=== PATIENT | female | born 1965 | race Two or more races ===

== ENCOUNTER 2016-08-15 11:21 | Emergency (ER) | payer OTHER ==
[2016-08-15 11:37] VITALS: PULSE 60; TEMP 98.1; BMI 31.6
[2016-08-15 12:09] LABS: BASOPHIL 2.5 % (0-2.0); EOSINOPHIL 3.6 % (0-4.5); MCH 30.3 pg (25.7-33.7); MCHC 34.5 g/dl (32.0-36.0); MEAN PLT VOLUME 8.4 fl (7.5-11.1); NEUTROPHILS 57.2 % (42.8-82.8); PLATELET COUNT 272 K/MM3 (134-434); RDW 12.4 % (11.6-15.6); WHITE BLOOD COUNT 4.8 K/mm3 (4.0-10.8)
[2016-08-15 12:32] LABS: CPK(DFH) 148 IU/L (26-140)
[2016-08-15 12:33] LABS: ALBUMIN 4.3 g/dl (3.5-5.0); ALK PHOS 70 U/L (32-92); ANION GAP 9 (8-16); BILIRUBIN,TOTAL 0.8 mg/dl (0.2-1.0); CALCIUM 9.6 mg/dl (8.4-10.2); CO2 25 mmol/L (22-28); CREATININE 0.9 mg/dl (0.6-1.3); GLUCOSE,RANDOM 127 mg/dl (74-106); SGOT/AST 37 U/L (10-42); SGPT/ALT 44 U/L (10-40); TOT PROT 7.4 g/dl (6.4-8.3)
--- NOTE | 2016-08-15 12:40 | PDOC ---
History of Present Illness - General Chief Complaint: Palpitations Stated Complaint: PALPITATONS HEADACHE Time Seen by Provider: 08/15/16 11:23 - History of Present Illness Initial Comments: 08/15/16 12:34 Chief complaint: Palpitations History of present illness: Patient complains of her heart pounding while she was lying in bed last night. This persisted until she fell asleep, she is uncertain of the time interval. She noticed her blood pressure was in the 140/ 90 range, which is high for her. Her symptoms have not recurred today, but she states she just wanted to be "checked out". She is asymptomatic at present other than feeling stress and anxiety. Review of systems: Denies chest pain, shortness of breath, abdominal pain, nausea, vomiting, diaphoresis, diarrhea, visual or focal neurologic symptoms, unsteadiness of gait, lightheadedness or dizziness, vertigo, headache, URI symptoms, sore throat, cough, urinary tract symptoms, vaginal bleeding or discharge. Past medical history: Mild high blood pressure managed on medication. Non- insulin-dependent diabetes. Perimenopausal. Patient had a recent cardiac stress test in June 2016 which was entirely negative. Medications: Lisinopril, propranolol, metformin, and Evista Social history: The patient admits to extreme stress and anxiety lately due to the foreclosure of her house. She feels her symptoms may be related. No tobacco alcohol or nonprescription drugs Family history: Reviewed and noncontributory including early coronary artery disease, metabolic disease including diabetes, and cancer Physical exam: Alert oriented 3, well-developed well-nourished, no acute distress, asymptomatic at present. However, she appears slightly anxious and became tearful when describing her house foreclosure PERRLA, fundi benign, ENT clear Neck supple without bruit mass or nodes Chest clear CV regular without murmur rub or gallop Abdomen benign Extremities no CCE Neurological C2 to 12 intact. Strength full and symmetric. No focal sensory or motor deficits. Gait stable and unimpaired Skin clear, no rash, adequate turgor and wet mucous membranes Impression: Brief episode of palpitations last night while lying in bed, probably the result of stress/anxiety. Recent stress test was entirely normal. Results were reviewed. The patient performance was without limitation. Plan: EKG and enzymes, CBC and chemistries, discussed social issues and observe Past History - Past Medical History Allergies/Adverse Reactions: Allergies Allergy/AdvReac Type Severity Reaction Status Date / Time No Known Drug Allergies Allergy Verified 08/15/16 11:37 Home Medications: Ambulatory Orders Propranolol HCl [Inderal LA -] 120 mg PO DAILY 12/18/12 Remifemin 20 mg PO DAILY 02/15/14 Lisinopril/Hydrochlorothiazide [Lisinopril-Hctz 10-12.5 mg Tab] 10 each PO DAILY 12/20/14 Metformin HCl 500 mg PO DAILY 08/15/16 Anemia: No Asthma: No Cancer: No Cardiac Disorders: Yes ("HEART MURMUR" PALPITATION) CVA: No COPD: No CHF: No Dementia: No Diabetes: Yes (CONTROLLED WITH DIET) GI Disorders: No Disorders: Yes (Uterine Fibroids) HTN: Yes Hypercholesterolemia: No Liver Disease: No Psychiatric Problems: No Suicide Attempt (Hx): No Seizures: No Thyroid Disease: No - Surgical History Abdominal Surgery: Yes (MYOMECTOMY) Appendectomy: Yes Cardiac Surgery: No Cholecystectomy: No Lung Surgery: No Neurologic Surgery: No Orthopedic Surgery: Yes (KNEE ARTHROSCOPY) - Family Disease History Family Disease History: Diabetes: Mother - Immunization History Td Vaccination: Yes Immunization Up to Date: Yes - Psycho/Social/Smoking Cessation Hx Anxiety: No Suicidal Ideation: No Smoking Status: No Smoking History: Never smoked Have you smoked in the past 12 months: No Number of Cigarettes Smoked Daily: 0 If you are a former smoker, when did you quit?: 2002 Hx Alcohol Use: Yes (SOCIAL) Drug/Substance Use Hx: No Substance Use Type: Alcohol Hx Substance Use Treatment: No Cardiac Specific PMH - Complaint Specific PMHX Pacemaker: No *Physical Exam - Vital Signs Last Vital Signs Temp Pulse Resp BP Pulse Ox 98.1 F 60 16 133/77 99 08/15/16 11:23 08/15/16 12:38 08/15/16 12:38 08/15/16 12:38 08/15/16 11:23 ED Treatment Course - LABORATORY CBC & Chemistry Diagram: 08/15/16 11:53 08/15/16 11:43 - ADDITIONAL ORDERS Additional order review: Laboratory Results 08/15/16 08/15/16 11:43 11:43 Sodium 135 L Potassium 4.2 Chloride 101 Carbon Dioxide 25 Anion Gap 9 BUN 13 Creatinine 0.9 Creat Clearance w eGFR > 60 Random Glucose 127 H Calcium 9.6 Total Bilirubin 0.8 AST 37 D ALT 44 H D Alkaline Phosphatase 70 Creatine Kinase 148 H Troponin I < 0.03 L Total Protein 7.4 Albumin 4.3 08/15/16 11:53 RBC 4.36 MCV 88.0 MCHC 34.5 RDW 12.4 MPV 8.4 Neutrophils % 57.2 Lymphocytes % 29.2 D Monocytes % 7.5 Eosinophils % 3.6 Basophils % 2.5 H Medical Decision Making - Medical Decision Making 08/15/16 12:41 EKG: Sinus bradycardia 56 bpm. Normal axes and intervals except for right bundle branch block. No other EKG changes. Old EKG from October 2011 was reviewed. There is no interval change. Labs reviewed: CBC, chemistries, and cardiac enzymes all without significant abnormalities Patient symptoms are almost certainly due to stress/anxiety. There is no evidence of cardiac disease or cardiac compromise. Reassured. Rest and to follow -up with her binder sorter and primary physician if symptoms persist, or return to the emergency room if symptoms worsen or new symptoms develop. Fully ambulatory, in no pain or other distress upon discharge to follow-up as directed. *DC/Admit/Observation/Transfer Diagnosis at time of Disposition: Palpitations - Discharge Dispostion Disposition: HOME Condition at time of disposition: Stable Admit: No - Patient Instructions Printed Discharge Instructions: DI for Anxiety -- Adult Additional Instructions: See your primary physician or Dr. Barrera your binder sorter for regular follow-up. Return to the ER if symptoms worsen. - Post Discharge Activity Work/School Note: Back to Work
[2016-08-15 12:48] VITALS: BP 133/77
[2016-08-15 13:09] LABS: TROPONIN I (DFP) < 0.03 ng/ml (0.03-0.50)
--- NOTE | 2016-08-16 07:55 | EKG ---
Test Reason : Blood Pressure : / mmHG Vent. Rate : 056 BPM Atrial Rate : 056 BPM P-R Int : 162 ms QRS Dur : 122 ms QT Int : 454 ms P-R-T Axes : 038 019 -03 degrees QTc Int : 438 ms SINUS BRADYCARDIA RIGHT BUNDLE BRANCH BLOCK ABNORMAL ECG WHEN COMPARED WITH ECG OF 14-OCT-2011 17:29, NO SIGNIFICANT CHANGE WAS FOUND Confirmed by KIERSTEN CHAPPELL MD ([id number]) on 08/16/2016 7:55:11 AM Referred By: POLLY STARKS Confirmed By:KIERSTEN CHAPPELL MD
== END 2016-08-15 13:22 | disposition home or self-care (01) ==
LOC: FER 11:21
DX: R00.2 Palpitations (principal); Z87.891 Personal history of nicotine dependence; I10 Essential (primary) hypertension
CPT/HCPCS: 36415; 80053; 82550; 84484; 85025; 93005; 93010; 99283-25

== ENCOUNTER 2017-06-01 14:12 | Emergency (ER) | payer OTHER ==
[2017-06-01 14:25] VITALS: TEMP 97.5; BMI 32.2
--- NOTE | 2017-06-01 14:25 | PDOC ---
History of Present Illness - History of Present Illness Initial Comments: 06/01/17 14:58 The patient is a 51 year old female, with a significant past medical history of High blood pressure managed with metformin, propranolol, and lisinopril, Non- insulin-dependent diabetes, Perimenopausal (taking Evista), chronic back pain s/ p herniated discs, and a negative stress test in June 2016, who presents to the emergency department with headache and elevated BP for about 3 days. She attributes her elevated BP to multiple stressors in her life, as well as, a recent increase to her chronic back pain. She states she has been taking her lisinopril 10mg this morning as directed. She reportedly took Tylenol and Naproxen for her headache without relief. She reports the headache is constant, diffuse and exacerbated by light. This patient is an employee of [address] [place] [address] with [employer]. She denies chest pain, shortness of breath, and dizziness. She denies fever, chills, nausea, vomit, diarrhea and constipation. She denies dysuria, frequency , urgency and hematuria. Allergies: NKDA Social history: The patient admits to stress and anxiety lately. She feels her symptoms may be related. No tobacco alcohol or nonprescription drugs Family history: Reviewed and noncontributory including early coronary artery disease, metabolic disease including diabetes, and cancer PCP: Dr. Giuliana Thorne <Aishwarya Merritt - Last Filed: 06/01/17 15:04> <Tejas Rangel - Last Filed: 06/01/17 17:18> - General Chief Complaint: Headache Stated Complaint: HEADACHE Time Seen by Provider: 06/01/17 14:21 Past History <Aishwarya Merritt - Last Filed: 06/01/17 15:04> - Past Medical History Anemia: No Asthma: No Cancer: No Cardiac Disorders: Yes ("HEART MURMUR" PALPITATION) CVA: No COPD: No CHF: No Dementia: No Diabetes: Yes (CONTROLLED WITH DIET) GI Disorders: No Disorders: Yes (Uterine Fibroids) HTN: Yes Hypercholesterolemia: No Liver Disease: No Psychiatric Problems: No Seizures: No Thyroid Disease: No - Surgical History Abdominal Surgery: Yes (MYOMECTOMY) Appendectomy: Yes Cardiac Surgery: No Cholecystectomy: No Lung Surgery: No Neurologic Surgery: No Orthopedic Surgery: Yes (KNEE ARTHROSCOPY) - Family Disease History Family Disease History: Diabetes: Mother - Immunization History Td Vaccination: Yes Immunization Up to Date: Yes - Suicide/Smoking/Psychosocial Hx Smoking Status: No Smoking History: Never smoked Have you smoked in the past 12 months: No Number of Cigarettes Smoked Daily: 0 If you are a former smoker, when did you quit?: 2002 Hx Alcohol Use: Yes (SOCIAL) Drug/Substance Use Hx: No Substance Use Type: Alcohol Hx Substance Use Treatment: No <Tejas Rangel - Last Filed: 06/01/17 17:18> - Past Medical History Allergies/Adverse Reactions: Allergies Allergy/AdvReac Type Severity Reaction Status Date / Time No Known Drug Allergies Allergy Verified 06/01/17 14:14 Home Medications: Ambulatory Orders propRANOLol HCL [Inderal LA -] 120 mg PO DAILY 12/18/12 Remifemin 20 mg PO BID 02/15/14 Lisinopril/Hydrochlorothiazide [Lisinopril-Hctz 10-12.5 mg Tab] 10 each PO DAILY 12/20/14 Ascorbic Acid [Vitamin C] 1 tab PO DAILY 06/01/17 Olopatadine HCl [Pataday] 1 drop OP ASDIR 06/01/17 Vitamin B Complex 1 each PO DAILY 06/01/17 Review of Systems - Review of Systems Able to Perform ROS?: Yes Comments:: 06/01/17 15:04 CONSTITUTIONAL: Absent: fever, chills, diaphoresis, generalized weakness, malaise, loss of appetite HEENT: Absent: rhinorrhea, nasal congestion, throat pain, throat swelling, difficulty swallowing, mouth swelling, ear pain, eye pain, visual Changes CARDIOVASCULAR: Absent: chest pain, syncope, palpitations, irregular heart rate, lightheadedness , peripheral edema RESPIRATORY: Absent: cough, shortness of breath, dyspnea with exertion, orthopnea, wheezing, stridor, hemoptysis GASTROINTESTINAL: Absent: abdominal pain, abdominal distension, nausea, vomiting, diarrhea, constipation, melena, hematochezia GENITOURINARY: Absent: dysuria, frequency, urgency, hesitancy, hematuria, flank pain, genital pain MUSCULOSKELETAL: Absent: myalgia, arthralgia, joint swelling SKIN: Absent: rash, itching, pallor HEMATOLOGIC/IMMUNOLOGIC: Absent: easy bleeding, easy bruising, lymphadenopathy, frequent infections ENDOCRINE: Absent: unexplained weight gain, unexplained weight loss, heat intolerance, cold intolerance NEUROLOGIC: (+) headache and photophobia. Absent: focal weakness or paresthesia, dizziness, unsteady gait, seizure, mental status changes, bladder or bowel incontinence PSYCHIATRIC: Absent: anxiety, depression, suicidal or homicidal ideation, hallucinations <Aishwarya Merritt - Last Filed: 06/01/17 15:04> *Physical Exam - Vital Signs Last Vital Signs Temp Pulse Resp BP Pulse Ox 97.5 F L 56 L 18 173/78 98 06/01/17 14:12 06/01/17 14:12 06/01/17 14:12 06/01/17 14:12 06/01/17 14:12 - Physical Exam Comments: 06/01/17 15:05 GENERAL: (+) Moderately obese, complains of headache but does not appear uncomfortable. Well developed, Awake and alert. No acute distress. HEENT: Normocephalic, atraumatic. PERRLA, EOMI. No conjunctival pallor. Sclera are non- icteric. Moist mucous membranes. Oropharynx is clear. opthalmic exam is normal. NECK: Supple. Full ROM. No JVD. Carotid pulses 2+ and symmetric, without bruits. No thyromegaly. No lymphadenopathy. CARDIOVASCULAR: (+) 2/6 systolic ejection murmur at left sternal border.Regular rate and rhythm. No rubs, or gallops. Distal pulses are 2+ and symmetric. PULMONARY: No evidence of respiratory distress. Lungs clear to auscultation bilaterally. No wheezing, rales or rhonchi. ABDOMINAL: Soft. Non-tender. Non-distended. No rebound or guarding. No organomegaly. Normoactive bowel sounds. MUSCULOSKELETAL Normal range of motion at all joints. No bony deformities or tenderness. No CVA tenderness. EXTREMITIES: No cyanosis. No clubbing. No edema. No calf tenderness. SKIN: (+) malar rash with a butterfly appearance and hyperpigmentation on the cheeks and forehead. Warm and dry. Normal capillary refill. No jaundice. NEUROLOGICAL: Alert, awake, appropriate. Cranial nerves 2-12 intact. No motor deficits in the upper extremities and lower extremities. Normoreflexic in the upper and lower extremities. Normal speech. Gait is normal without ataxia. PSYCHIATRIC: Cooperative. Good eye contact. Appropriate mood and affect. <Aishwarya Merritt - Last Filed: 06/01/17 15:04> Medical Decision Making - Medical Decision Making 06/01/17 17:17 Headache is resolved. Blood pressure is down to 136/74. Neurologic and cardiac exams remains normal. Follow-up with primary physician, or return to ER if symptoms again worsen. Fully ambulatory and in no pain or other distress upon discharge with family to follow-up as directed. <Tejas Rangel - Last Filed: 06/01/17 17:18> *DC/Admit/Observation/Transfer - Attestations Scribe Attestion: 06/01/17 14:26 Documentation prepared by Aishwarya Merritt, acting as biomedical engineer for Tejas Roach MD <Aishwarya Merritt - Last Filed: 06/01/17 15:04> - Discharge Dispostion Admit: No <Tejas Rangel - Last Filed: 06/01/17 17:18> Diagnosis at time of Disposition: Headache Qualifiers: Headache type: unspecified Headache chronicity pattern: acute headache Intractability: not intractable Qualified Code(s): R51 - Headache Hypertension Qualifiers: Hypertension type: essential hypertension Qualified Code(s): I10 - Essential ( primary) hypertension - Discharge Dispostion Disposition: HOME Condition at time of disposition: Improved - Referrals Referrals: Giuliana Thorne MD [Primary Care Provider] - 3 days - Patient Instructions Printed Discharge Instructions: DI for High Blood Pressure, DI for Headache - Post Discharge Activity Forms/Work/School Notes: Back to Work
[2017-06-01] MEDS ORDERED: LABETALOL HCL 100 MG TABLET (FP) PO ONE (15:12)
[2017-06-01] MEDS ORDERED: traMADol HCL 50 MG TABLET PO ONE (15:13)
[2017-06-01] MEDS ORDERED: LABETALOL HCL 200 MG TABLET (FP) ONE (15:16)
[2017-06-01] MEDS ORDERED: traMADol HCL 50 MG TABLET ONE (15:16)
[2017-06-01 17:10] VITALS: BP 136/76; PULSE 58
== END 2017-06-01 17:30 | disposition home or self-care (01) ==
LOC: FER 14:12
DX: R51 Headache (principal); I10 Essential (primary) hypertension
CPT/HCPCS: 99283-25

== ENCOUNTER 2018-09-28 01:37 | Emergency (ER) | payer OTHER | END 2018-09-28 02:24 | disposition home or self-care (01) | LOC: FER 01:37 ==

== ENCOUNTER 2019-01-14 08:14 | Emergency (ER) | payer OTHER ==
[2019-01-14 08:20] VITALS: TEMP 97.9; BMI 32.8
--- NOTE | 2019-01-14 08:45 | PDOC ---
History of Present Illness - General Chief Complaint: Blood Pressure Problem Stated Complaint: HIGH BLOOD PRESSURE Time Seen by Provider: 01/14/19 08:16 - History of Present Illness Initial Comments: 01/14/19 09:02 53-year-old female with a past medical history of hypertension, diabetes, hyperlipidemia, anxiety presents emergency department with concern for elevated blood pressure. Patient reports she woke up this morning with a headache. She then felt the urge to defecate, and decided to check her blood pressure which she found was 205/89. At that point she decided to take her morning dose of blood pressure medications which are lisinopril 20 mg and hydrochlorothiazide 25 mg and present to the emergency department for further evaluation. The patient notes that often after she defecates and voids her blood pressure tends to improve on its own. She states since arriving in the emergency department she had another bowel movement and also voided 3 times and now is currently asymptomatic and denies headache. Her BP is currently 154/84. She reports headaches almost daily, but states that she suffers from chronic migraines for which she is followed by her primary care physician. She states her headache today is no different. She denies any associated dizziness, focal weakness or numbness, chest pain, shortness of breath, abdominal pain, nausea, vomiting, diarrhea, blurry vision, lower extremity edema, urinary symptoms. PMD: Dr. Thorne Cards: Dr. Hoffmann Social: Works at [employer], previous smoker, no drugs, social etoh Past History - Past Medical History Allergies/Adverse Reactions: Allergies Allergy/AdvReac Type Severity Reaction Status Date / Time No Known Drug Allergies Allergy Verified 01/14/19 08:20 Home Medications: Ambulatory Orders propRANOLol HCL [Inderal LA -] 120 mg PO DAILY 12/18/12 Lisinopril/Hydrochlorothiazide [Lisinopril-Hctz 20-25 mg Tab] 1 each PO DAILY Alprazolam [Xanax] 0.5 mg PO BID 01/14/19 Esomeprazole Magnesium [Nexium 24Hr] 40 mg PO DAILY 01/14/19 Fenofibric Acid [Fibricor] 105 mg PO DAILY 01/14/19 Rosuvastatin Calcium [Crestor] 10 mg PO DAILY 01/14/19 Anemia: No Asthma: No Cancer: No Cardiac Disorders: Yes ("HEART MURMUR" PALPITATION) CVA: No COPD: No CHF: No Dementia: No Diabetes: Yes GI Disorders: No Disorders: Yes (Uterine Fibroids) HTN: Yes Hypercholesterolemia: No Liver Disease: No Psychiatric Problems: No Seizures: No Thyroid Disease: No Other medical history: MONE - Surgical History Abdominal Surgery: Yes (MYOMECTOMY) Appendectomy: Yes Cardiac Surgery: No Cholecystectomy: No Lung Surgery: No Neurologic Surgery: No Orthopedic Surgery: Yes (KNEE ARTHROSCOPY) - Immunization History Td Vaccination: Yes Immunization Up to Date: Yes - Psycho Social/Smoking Cessation Hx Smoking Status: No Smoking History: Never smoked Have you smoked in the past 12 months: No Number of Cigarettes Smoked Daily: 0 If you are a former smoker, when did you quit?: 2002 Hx Alcohol Use: Yes (OCASIONAL) Drug/Substance Use Hx: No Substance Use Type: Alcohol Hx Substance Use Treatment: No Review of Systems - Review of Systems Comments:: 01/14/19 09:11 GENERAL/CONSTITUTIONAL: No fever or chills. No weakness. HEAD, EYES, EARS, NOSE AND THROAT: No change in vision. No ear pain or discharge. No sore throat. GASTROINTESTINAL: No nausea, vomiting, diarrhea or constipation. GENITOURINARY: No dysuria, frequency, or change in urination. CARDIOVASCULAR: No chest pain or shortness of breath. RESPIRATORY: No cough, wheezing, or hemoptysis. MUSCULOSKELETAL: No joint or muscle swelling or pain. No neck or back pain. SKIN: No rash NEUROLOGIC: No headache, vertigo, loss of consciousness, or change in strength/ sensation. ENDOCRINE: No increased thirst. No abnormal weight change. HEMATOLOGIC/LYMPHATIC: No anemia, easy bleeding, or history of blood clots. ALLERGIC/IMMUNOLOGIC: No hives or skin allergy. *Physical Exam - Vital Signs Last Vital Signs Temp Pulse Resp BP Pulse Ox 97.9 F 66 17 154/84 100 01/14/19 08:15 01/14/19 08:15 01/14/19 08:15 01/14/19 08:31 01/14/19 08:15 - Physical Exam Comments: 01/14/19 09:12 GENERAL: Awake, alert, and fully oriented, in no acute distress EYES: PERRLA, EOMI, sclera anicteric, conjunctiva clear ENT: Auricles normal inspection, hearing grossly normal, nares patent, oropharynx clear without exudates. Moist mucosa NECK: Normal ROM, supple, no lymphadenopathy, JVD, or masses LUNGS: Breath sounds equal, clear to auscultation bilaterally. No wheezes, and no crackles HEART: Regular rate and rhythm, normal S1 and S2, no murmurs, rubs or gallops ABDOMEN: Soft, nontender, normoactive bowel sounds. No guarding, no rebound. No masses EXTREMITIES: Normal range of motion, no edema. No clubbing or cyanosis. No cords, erythema, or tenderness NEUROLOGICAL: Normal speech, cranial nerves intact, negative pronator drift, 5/ 5 strength in all 4 extremities, normal sensation to light touch in all 4 extremities, normal cerebellar exam, normal gait, normal reflexes and tone SKIN: Warm, Dry, normal turgor, no rashes or lesions noted. Medical Decision Making - Medical Decision Making 01/14/19 09:12 53-year-old female presents the emergency department with concern for elevated blood pressure prior to taking her home dose medications, as well as resolved headache. Patient has headaches almost daily, states this headache was no different. Blood pressure here has improved to the 150s over 80s. Patient is asymptomatic. She feels well and has a normal exam. Patient is well-appearing. She is clinically stable for discharge home with close PMD follow-up. I discussed the physical exam findings, ancillary test results and final diagnoses with the patient. I answered all of the patient's questions. The patient was satisfied with the care received and felt comfortable with the discharge plan and treatment plan. The patient will call their primary care physician within 24 hours to arrange follow-up and will return to the Emergency Department with any new, persistent or worsening symptoms. Discharge - Discharge Information Problems reviewed: Yes Clinical Impression/Diagnosis: Headache, Hypertension Condition: Stable Disposition: HOME - Admission No - Follow up/Referral Referrals: Giuliana Thorne MD [Primary Care Provider] - - Patient Discharge Instructions Patient Printed Discharge Instructions: DI for High Blood Pressure Additional Instructions: Continue to take your medications as prescribed. Try not to skip any doses. Follow-up with your primary care physician within 2 to 3 days. Return to the emergency department if you have any new, worsening or concerning symptoms. We hope you feel better soon! - Post Discharge Activity
[2019-01-14] MEDS ORDERED: ACETAMINOPHEN 500 MG TABLET (FP) PO ONE (09:01)
[2019-01-14] MEDS ORDERED: ACETAMINOPHEN 500 MG TABLET (FP) ONE (09:03)
[2019-01-14 09:28] VITALS: BP 126/68; PULSE 88
== END 2019-01-14 09:34 | disposition home or self-care (01) ==
LOC: FER 08:14 → SUPCPDRO 08:14 → FER 09:34
DX: R51 Headache (principal); I10 Essential (primary) hypertension; Z87.891 Personal history of nicotine dependence
CPT/HCPCS: 99281-25

== ENCOUNTER 2019-01-28 04:57 | Day surgery (SDC) | payer OTHER ==
[2019-01-26 12:16] VITALS: BMI 32.8
[2019-01-28] MEDS ORDERED: MIDAZOLAM HCL 2 MG/2 ML SINGLE DOSE VIAL ONE (13:57)
[2019-01-28] MEDS ORDERED: PROPOFOL 20 ML ONE ×2 (13:58)
[2019-01-28] MEDS ORDERED: SUCCINYLCHOLINE CHLORIDE 200 MG/10 ML SYRINGE ONE ×2 (13:58)
--- NOTE | 2019-01-28 14:35 | HP ---
History & Physical Update - History History: No Change - Physical Physical: No Change - Assessment Assessment: No Change - Plan Plan: No Change (Cervical stenosis, endometrial hyperplasia, fibroid uterus. Pt is admitted for hysteroscopy, D&C.)
[2019-01-28] MEDS ORDERED: oxyCODONE HCL 5 MG TABLET PO PRN ×2 (15:28)
[2019-01-28] MEDS ORDERED: ONDANSETRON 4 MG/2 ML VIAL IVPUSH PRN (15:28)
[2019-01-28] MEDS ORDERED: LACTATED RINGERS SOLUTION 1,000 ML IV SCH (15:30)
[2019-01-28 16:29] VITALS: PULSE 50
[2019-01-28 17:40] VITALS: BP 112/66; TEMP 97.2
--- NOTE | 2019-01-28 17:57 | OP ---
Operative Note - Note: Operative Date: 01/28/19 Pre-Operative Diagnosis: Endometrial hyperplasia, firboid uterus Operation: Hysteroscopy, D&C Findings: Normal uterine cavity, fibroid uterus Post-Operative Diagnosis: Same as Pre-op Surgeon: Neel Larios Anesthesiologist/[employer] ASSEMBLER: Megan Stock MD Anesthesia: General Specimens Removed: Endometrial curettings Estimated Blood Loss (mls): 5 Blood Volume Replaced (mls): 0 Fluid Volume Replaced (mls): 200 Operative Report Dictated: Yes
--- NOTE | 2019-02-02 18:36 | PATH ---
Surgical Pathology Report Patient Name: DELPHINE SHARIF [facility]. Rec. #: [id number] /Age/Gender: 1965 (Age: 53) / F Account: [id number] Location: [facility] SURGICAL Taken: 01/28/2019 Received: 01/30/2019 Reported: 02/02/2019 Physicians: Neel Larios M.D. Specimen(s) Received ENDOMETRIAL CURETTINGS Clinical History Endometrial hyperplasia Final Diagnosis ENDOMETRIAL CURETTINGS: FRAGMENTS OF ENDOMETRIAL POLYP. 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 SEPARATE FRAGMENTS OF SECRETORY TYPE ENDOMETRIUM. Electronically Signed Danni Napoles M.D. Gross Description Received in formalin labeled "endometrial curettings," is a 3.4 x 2.5 x 0.3 cm aggregate of stephens-brown soft tissue fragments. The formalin is filtered and the specimen is entirely submitted in 2 cassettes. /01/30/2019 saudi01/30/2019
--- NOTE | 2019-02-04 21:19 | OP ---
DATE OF OPERATION: 01/28/2019 PREOPERATIVE DIAGNOSES: Endometrial hyperplasia, fibroid uterus, possible postmenopausal bleeding (unclear). POSTOPERATIVE DIAGNOSES: Endometrial hyperplasia, fibroid uterus, possible postmenopausal bleeding (unclear). PROCEDURE: Hysteroscopy, dilatation and curettage. SURGEON: Ashley Castellanos MD ANESTHESIOLOGIST: STEFFEN Acevedo ANESTHESIA: General. COMPLICATIONS: None. PATHOLOGY: Endometrial curettings. ESTIMATED BLOOD LOSS: 5 mL. INTRAVENOUS FLUIDS: 200 mL. FINDINGS: Examination under anesthesia revealed an enlarged bulky uterus consistent with uterine myomas. Hysteroscopy revealed a normal uterine cavity. No lesions were noted. The cervical os was noted to be stenotic. DESCRIPTION OF PROCEDURE: The patient was met preoperatively. Risks, benefits, and alternatives of surgery were discussed in details. All questions were answered. The consent form was reviewed and discussed. The patient verbalized her understanding. The patient then requested to proceed with surgery. She was brought to the OR with the IV running. The patient was placed on the surgical table in the supine position. The general anesthesia was achieved without difficulty. The patient was then placed in a dorsal lithotomy position using adjustable Hernandez stirrups. She was examined under anesthesia with the findings as described above. The timeout was conducted as per standard protocol. The patient was prepped and draped in the usual sterile fashion. A weighted speculum was introduced inside the vagina with good visualization of the cervix. The cervix was grasped with a single-tooth tenaculum. The endocervical canal was dilated with graduated Benito dilators. A diagnostic hysteroscope was then introduced inside the endometrial cavity. The endometrial cavity was noted to be within normal limits. The endometrial lining appeared somewhat atrophic. The hysteroscope was then removed. A sharp uterine curettage was performed. The tissue was sent to Pathology. Once this was completed, all of the instruments were removed. Sponge, lap, instrument counts were correct. Good hemostasis was noted. The patient was returned to supine position. She was transferred to recovery room in stable condition and awake. ASHLEY CASTELLANOS M.D. [id number]
== END 2019-01-28 17:42 | disposition home or self-care (01) ==
LOC: JASU-SURG 04:57
PROVIDERS: ATTEND Obstetrics & Gynecology
PROC: 0UDB7ZX Extraction of Endometrium, Via Natural or Artificial Opening, Diagnostic (ICD-10-PCS; principal; 2019-01-28 14:00)
PROC: 0UJD8ZZ Inspection of Uterus and Cervix, Via Natural or Artificial Opening Endoscopic (ICD-10-PCS; 2019-01-28 14:00)
DX: D25.9 Leiomyoma of uterus, unspecified (principal); I10 Essential (primary) hypertension; G47.30 Sleep apnea, unspecified; E66.9 Obesity, unspecified
CPT/HCPCS: 81025; 88305-TC; 94760

== ENCOUNTER 2019-09-18 17:59 | Emergency (ER) | payer MEDICARE ==
[2019-09-18 18:23] VITALS: BP 155/81; PULSE 52; TEMP 98.2; BMI 31.8
--- NOTE | 2019-09-18 18:43 | PDOC ---
Documentation entered by Garret Head SCRIBE, acting as scribe for Izzy Brasher MD. Izzy Brasher MD: This documentation has been prepared by the Adilene cleaning Xhesika, SCRIBE, under my direction and personally reviewed by me in its entirety. I confirm that the documentation accurately reflects all work, treatment, procedures, and medical decision making performed by me. History of Present Illness - General Chief Complaint: Sore Throat Stated Complaint: throat pain diff swallow wants thyroid scan Time Seen by Provider: 09/18/19 18:07 History Source: Patient Exam Limitations: No Limitations - History of Present Illness Initial Comments: 09/18/19 18:09 The patient is a 53y/o F with a PMH of HTN, DM, HLD, anxiety, IBS and recent COVID + (May 2019) who presents to the ED with 1.5 - 2 weeks of throat pain, worsening today. Pt reports associated difficulty swallowing and feels something "dripping in her throat." Pt states she saw ENT last week, and everything was unremarkable. Pt states she saw her PCP this morning, labs were normal, and is scheduled for an outpatient US next week. Pt states she wants her thyroid janki cked, prompting her arrival to the ED. The patient denies chest pain, shortness of breath, headache and dizziness. Denies fever, cough, nausea, vomiting, diarrhea and constipation. Allergies: NKDA PCP: Dr. Tamayo Past History - Medical History Allergies/Adverse Reactions: Allergies Allergy/AdvReac Type Severity Reaction Status Date / Time No Known Drug Allergies Allergy Verified 09/18/19 18:08 Home Medications: Ambulatory Orders propRANOLol HCL [Inderal LA -] 120 mg PO HS 12/18/12 Lisinopril/Hydrochlorothiazide [Lisinopril-Hctz 20-25 mg Tab] 1 each PO DAILY 09/28/18 Lisinopril 20 mg PO DAILY 01/28/19 Fluticasone Prop 0.05% Nasal [Flonase -] 1 - 2 spray NS DAILY #1 spray.pump 09/01 09/20 Anemia: No Asthma: No Cancer: No Cardiac Disorders: Yes ("HEART MURMUR" PALPITATION) CVA: No COPD: No CHF: No Dementia: No Diabetes: Yes GI Disorders: No Disorders: Yes (Uterine Fibroids) HTN: Yes Hypercholesterolemia: No Liver Disease: No Psychiatric Problems: No Seizures: No Thyroid Disease: No - Surgical History Abdominal Surgery: Yes (MYOMECTOMY) Appendectomy: Yes Cardiac Surgery: No Cholecystectomy: No Lung Surgery: No Neurologic Surgery: No Orthopedic Surgery: Yes (KNEE ARTHROSCOPY) - Immunization History Td Vaccination: Yes Immunization Up to Date: Yes - Psycho-Social/Smoking History Smoking Status: No Smoking History: Never smoked Have you smoked in the past 12 months: No Number of Cigarettes Smoked Daily: 0 If you are a former smoker, when did you quit?: 2002 Review of Systems - Review of Systems Able to Perform ROS?: Yes Comments:: 09/18/19 18:11 GENERAL/CONSTITUTIONAL: No fever or chills. No weakness. HEAD, EYES, EARS, NOSE AND THROAT: No change in vision. No ear pain or discharge. +throat pain. +difficulty swallowing. CARDIOVASCULAR: No chest pain or shortness of breath. RESPIRATORY: No cough, wheezing, or hemoptysis. GASTROINTESTINAL: No nausea, vomiting, diarrhea or constipation. GENITOURINARY: No dysuria, frequency, or change in urination. MUSCULOSKELETAL: No joint or muscle swelling or pain. No neck or back pain. SKIN: No rash NEUROLOGIC: No headache, vertigo, loss of consciousness, or change in strength/sensation. ENDOCRINE: No increased thirst. No abnormal weight change. HEMATOLOGIC/LYMPHATIC: No anemia, easy bleeding, or history of blood clots. ALLERGIC/IMMUNOLOGIC: No hives or skin allergy. *Physical Exam - Physical Exam GENERAL: Awake, alert, and fully oriented, in no acute distress HEAD: No signs of trauma EYES: PERRLA, EOMI, sclera anicteric, conjunctiva clear ENT: Auricles normal inspection, hearing grossly normal, nares patent, oropharynx clear without exudates. Moist mucosa. +Cobblestoning of the posterior oropharynx. +Boggy nasal turbinates B/L. NECK: Normal ROM, supple, no lymphadenopathy, JVD. Mild thyromegaly, nontender LUNGS: Breath sounds equal, clear to auscultation bilaterally. No wheezes, and no crackles HEART: Regular rate and rhythm, normal S1 and S2, no murmurs, rubs or gallops ABDOMEN: Soft, nontender, normoactive bowel sounds. No guarding, no rebound. No masses EXTREMITIES: Normal range of motion, no edema. No clubbing or cyanosis. No cords, erythema, or tenderness NEUROLOGICAL: Cranial nerves II through XII grossly intact. Normal speech, normal gait. Motor and sensation intact SKIN: Warm, dry, normal turgor, no rashes or lesions noted. Medical Decision Making - Medical Decision Making Pt explains that her main concern is that she has COVID again, however, her symptoms are atypical for it. She is afebrile, no signs of infection. Based on stated history and her exam, suspect this may be allergic rhinitis. Will swab for strep (unlikely based on exam). Will check TFTs, as well, as she was referred for thyroid testing based on her complaint and the thyromegaly. Discharge - Discharge Information Problems reviewed: Yes Clinical Impression/Diagnosis: Throat pain Condition: Stable Disposition: HOME - Additional Discharge Information Prescriptions: Fluticasone Prop 0.05% Nasal [Flonase -] 1 - 2 spray NS DAILY #1 spray.pump - Follow up/Referral Referrals: Beka Tamayo MD [Primary Care Provider] - - Patient Discharge Instructions Patient Printed Discharge Instructions: DI for Pharyngitis/Tonsillopharyngitis -- Adult Additional Instructions: Your symptoms may be due to allergies. Take flonase as directed for 1 week, as your symptoms should start to improve by then if that is the cause. You can also take either claritin or lilibeth by mouth. - Post Discharge Activity
== END 2019-09-18 19:07 | disposition home or self-care (01) ==
LOC: FER 17:59
DX: R07.0 Pain in throat (principal)
CPT/HCPCS: 36415; 84439; 84443; 87070; 87880; 99283-25

== ENCOUNTER 2019-09-29 17:54 | Emergency (ER) | payer MEDICARE ==
--- NOTE | 2019-09-29 18:28 | PDOC ---
History of Present Illness - General Chief Complaint: Rash Stated Complaint: RASH TO RIGHT ABDOMEN AND SIDE FOR 2 WEEKS Time Seen by Provider: 09/29/19 17:59 History Source: Patient, Old Records Exam Limitations: No Limitations - History of Present Illness Initial Comments: 09/29/19 18:21 53-year-old female history of hypertension, high cholesterol, recent COVID-19 diagnosis complicated by pulmonary symptoms status post recovery presents now with 2 to 3 weeks of scattered rash, predominantly resolved but with residual lesion on her abdomen. Patient reports vesicular type rash on her right face, right forearm, right thigh, and right abdomen that began about 2 or 3 weeks ago. It was predominantly itchy with occasional sharp pain, now essentially completely resolved except for a large patch on her right abdomen, which is persistently itchy. No fevers or chills, no drainage, no other complaints. Has been applying Benadryl cream without relief, has been unable to schedule a dermatology or PCP appointment, so she presents for evaluation. Past History - Medical History Allergies/Adverse Reactions: Allergies Allergy/AdvReac Type Severity Reaction Status Date / Time No Known Drug Allergies Allergy Verified 09/18/19 18:08 Home Medications: Ambulatory Orders propRANOLol HCL [Inderal LA -] 120 mg PO HS 12/18/12 Lisinopril/Hydrochlorothiazide [Lisinopril-Hctz 20-25 mg Tab] 1 each PO DAILY 09/28/18 Lisinopril 20 mg PO DAILY 01/28/19 Fluticasone Prop 0.05% Nasal [Flonase -] 1 - 2 spray NS DAILY #1 spray.pump 09/18/19 Prednisone [Prednisone 50 MG TABLETS] 50 mg PO DAILY #7 tablet 09/29/19 Anemia: No Asthma: No Cancer: No Cardiac Disorders: Yes ("HEART MURMUR" PALPITATION) CVA: No COPD: No CHF: No Dementia: No Diabetes: Yes GI Disorders: No Disorders: Yes (Uterine Fibroids) HTN: Yes Hypercholesterolemia: No Liver Disease: No Psychiatric Problems: No Seizures: No Thyroid Disease: No - Surgical History Abdominal Surgery: Yes (MYOMECTOMY) Appendectomy: Yes Cardiac Surgery: No Cholecystectomy: No Lung Surgery: No Neurologic Surgery: No Orthopedic Surgery: Yes (KNEE ARTHROSCOPY) - Immunization History Td Vaccination: Yes Immunization Up to Date: Yes - Psycho-Social/Smoking History Smoking Status: No Smoking History: Never smoked Have you smoked in the past 12 months: No Number of Cigarettes Smoked Daily: 0 If you are a former smoker, when did you quit?: 2002 Review of Systems - Review of Systems Able to Perform ROS?: Yes Constitutional: No: Chills, Fever HEENTM: No: Recent change in vision Respiratory: No: Cough, Shortness of Breath Cardiac (ROS): No: Chest Pain ABD/GI: No: Diarrhea, Vomiting : No: Dysuria Integumentary: Yes: See HPI, Rash Neurological: No: Headache All Other Systems: Reviewed and Negative *Physical Exam - Physical Exam 09/29/19 18:24 Afebrile. GENERAL: The patient is awake, alert, and fully oriented, in no acute distress. HEAD: Normal with no signs of trauma. EYES: PERRL, EOMI, sclera anicteric, conjunctiva clear with no pallor. ENT: Oropharynx clear without exudates. Moist mucous membranes. NECK: Normal range of motion, supple without lymphadenopathy, JVD. Thyroid nodules but no gross enlargement. LUNGS: Breath sounds equal, clear to auscultation bilaterally. No wheeze/crackles. HEART: Regular rate and rhythm, normal S1 and S2 without murmur or rub. ABDOMEN: Soft/nontender/nondistended. BS wnl. No guarding or rebound. No palpable masses. No hepatosplenomegaly. EXTREMITIES: Normal range of motion, no edema. 2+ distal pulses. No cords, erythema, or tenderness. NEUROLOGICAL: Cranial nerves II through XII grossly intact. Normal speech, normal gait. PSYCH: Normal mood, normal affect. SKIN: about 20cm rectangular rubor at T11 dermatome on R, no active vesicles or superimposed cellulitis. Medical Decision Making - Medical Decision Making 09/29/19 18:28 53y/o F post-COVID with likely shingles outbreak that began 2-3 weeks ago, seemed disseminated/multi-dermatomal now with residual skin lesion to R abdomen only. No evidence of sirs/sepsis or superimposed cellulitis. ? dermatitis. Too late for valtrex benefit. steroids no longer 1st line indication for zoster, but given possible element of dermatitis and post-covid setting, ? benefit. trial of prednisone derm referral, Roni referral understands return criteria Discharge - Discharge Information Problems reviewed: Yes Clinical Impression/Diagnosis: Rash associated with COVID-19 Zoster Qualifiers: Herpes zoster complications: without complications Qualified Code(s): B02.9 - Zoster without complications Condition: Stable Disposition: HOME - Additional Discharge Information Prescriptions: Prednisone [Prednisone 50 MG TABLETS] 50 mg PO DAILY #7 tablet - Follow up/Referral Referrals: Beverly Rosado MD [Staff Physician] - Beka Tamayo MD [Staff Physician] - - Patient Discharge Instructions Patient Printed Discharge Instructions: DI for Shingles Additional Instructions: Activity as tolerated. Stay hydrated. Your rash may be most consistent with a shingles/zoster outbreak. Most of the rash resolved, but take Prednisone for the remaining abdominal lesion. You can continue applying bacitracin cream and/or taking benadryl for itching. Continue your medications as previously prescribed by your physician. You should follow up with Dr. Tamayo as soon as possible regarding today's emergency department visit. As discussed, continue trying to see Dr. Rosado of dermatology. Return to the emergency department for any new or concerning symptoms, particularly worsening rash, fever/chills, pain or bleeding or pus. - Post Discharge Activity
[2019-09-29 18:51] VITALS: BP 159/72; PULSE 58; TEMP 98.4; BMI 31.8
== END 2019-09-29 18:46 | disposition home or self-care (01) ==
LOC: FER 17:54
DX: R21 Rash and other nonspecific skin eruption (principal); B02.9 Zoster without complications
CPT/HCPCS: 99283-25

== ENCOUNTER 2021-06-06 04:11 | Day surgery (SDC) | payer OTHER ==
[2021-06-02 13:10] VITALS: BMI 32.4
[2021-06-06] MEDS ORDERED: PROPOFOL 20 ML ONE ×2 (07:27)
[2021-06-06] MEDS ORDERED: MIDAZOLAM HCL 2 MG/2 ML SINGLE DOSE VIAL ONE (07:27)
[2021-06-06] MEDS ORDERED: LIDOCAINE HCL/PF 2% SDV 5ML VIAL ONE (07:27)
[2021-06-06] MEDS ORDERED: GLYCOPYRROLATE 0.2 MG/1 ML VIAL ONE (07:27)
[2021-06-06] MEDS ORDERED: PROMETHAZINE HCL 25 MG/1 ML VIAL IVPB PRN (07:32)
[2021-06-06] MEDS ORDERED: oxyCODONE HCL 5 MG TABLET PO PRN (07:32)
[2021-06-06] MEDS ORDERED: ONDANSETRON 4 MG/2 ML VIAL IVPUSH PRN (07:32)
[2021-06-06] MEDS ORDERED: ACETAMINOPHEN 325 MG TABLET (FP) PO PRN (07:32)
[2021-06-06] MEDS ORDERED: LACTATED RINGERS SOLUTION 1,000 ML IV SCH (07:45)
[2021-06-06] MEDS ORDERED: ceFAZolin SODIUM 1 GM VIAL ONE (08:00)
[2021-06-06] MEDS ORDERED: ceFAZolin SODIUM 1 GM VIAL IVPB ONE (08:00)
[2021-06-06] MEDS ORDERED: KETOROLAC TROMETHAMINE 30 MG/1 ML VIAL ONE (08:01)
[2021-06-06] MEDS ORDERED: SODIUM CHLORIDE 0.9% P/F 10 ML VIAL IJ ONE (08:11)
[2021-06-06 11:28] VITALS: TEMP 97.9
[2021-06-06 11:31] VITALS: BP 134/74; PULSE 60
== END 2021-06-06 10:55 | disposition home or self-care (01) ==
LOC: JASU-SURG 04:11
PROVIDERS: ATTEND Urology
PROC: 0TF4XZZ Fragmentation in Left Kidney Pelvis, External Approach (ICD-10-PCS; principal; 2021-06-06 07:30)
DX: N20.0 Calculus of kidney (principal); E11.9 Type 2 diabetes mellitus without complications; Z79.84 Long term (current) use of oral hypoglycemic drugs
CPT/HCPCS: 82962

== ENCOUNTER 2021-08-01 01:10 | Emergency (ER) | payer OTHER ==
[2021-08-01 01:25] VITALS: BP 156/85; PULSE 72; TEMP 98.7; BMI 33.1
[2021-08-01] MEDS ORDERED: predniSONE 20 MG TABLET (UD) PO ONE (01:25)
[2021-08-01] MEDS ORDERED: predniSONE 20 MG TABLET (UD) ONE (01:27)
== END 2021-08-01 01:38 | disposition home or self-care (01) ==
LOC: FER 01:10
DX: L25.5 Unspecified contact dermatitis due to plants, except food (principal)
CPT/HCPCS: 99283-25

== ENCOUNTER 2022-05-04 13:56 | Emergency (ER) | payer OTHER ==
[2022-05-04 14:09] VITALS: BP 116/71; PULSE 58; RESP 16; TEMP 97.8; BMI 32.2
[2022-05-04] MEDS ORDERED: SODIUM CHLORIDE 0.9% 500 ML INFUS.BAG IV ONE (14:12)
[2022-05-04 14:54] LABS: ALBUMIN 4.2 g/dl (3.4-5.0); BILIRUBIN,TOTAL 1.1 mg/dl (0.2-1); CALCIUM 9.2 mg/dl (8.5-10); CREATININE 0.9 mg/dl (0.55-1.3); TOT PROT 7.4 g/dl (6.4-8.2)
[2022-05-04 17:48] LABS: VENOUS BASE EXCESS -0.5 mmol/L (-2-2); VENOUS O2 SATURATION 49.9 % (70-80); VENOUS PCO2 51.1 mmHg (38-52); VENOUS PH 7.326 (7.310-7.410)
== END 2022-05-04 15:43 | disposition home or self-care (01) ==
LOC: FER 13:56
DX: R19.7 Diarrhea, unspecified (principal)
CPT/HCPCS: 36415; 80053; 82803; 83690; 99283-25

== ENCOUNTER 2022-10-08 11:38 | Emergency (ER) | payer OTHER ==
[2022-10-08] MEDS ORDERED: SODIUM CHLORIDE 0.9% 500 ML INFUS.BAG IV ONE (11:44)
[2022-10-08 11:45] VITALS: BP 141/69; PULSE 48; RESP 15; TEMP 97.9; BMI 31.8
[2022-10-08] MEDS ORDERED: diphenhydrAMINE HCL 25 MG CAPSULE (FP) PO ONE (11:51)
[2022-10-08] MEDS ORDERED: DEXAMETHASONE 4 MG TABLET (FP) PO ONE (11:52)
[2022-10-08] MEDS ORDERED: FAMOTIDINE 10 MG TABLET PO ONE ×2 (11:52→12:24)
[2022-10-08] MEDS ORDERED: predniSONE 20 MG TABLET (UD) PO ONE (11:54)
[2022-10-08] MEDS ORDERED: predniSONE 20 MG TABLET (UD) ONE (12:24)
[2022-10-08] MEDS ORDERED: diphenhydrAMINE HCL 50 MG CAPSULE ONE (12:25)
[2022-10-08] MEDS ORDERED: predniSONE 10 MG TABLET (UD) ONE (12:25)
[2022-10-08] MEDS ORDERED: FAMOTIDINE 20 MG TABLET ONE (12:25)
== END 2022-10-08 14:10 | disposition home or self-care (01) ==
LOC: FER 11:38
DX: L23.5 Allergic contact dermatitis due to other chemical products (principal); R21 Rash and other nonspecific skin eruption
CPT/HCPCS: 99283-25

== ENCOUNTER 2023-07-01 12:30 | Emergency (ER) | payer OTHER ==
[2023-07-01 12:46] VITALS: BP 122/70; PULSE 76; RESP 16; TEMP 98.8; BMI 31.8
[2023-07-01] MEDS ORDERED: ONDANSETRON 4 MG/2 ML VIAL ONE (13:00)
[2023-07-01] MEDS ORDERED: ACETAMINOPHEN INJECTION 100 ML IVPB ONE (13:00)
[2023-07-01] MEDS ORDERED: FAMOTIDINE 20 MG/50 ML IVPB 20 MG/50 ML MG IVPB ONE (13:00)
[2023-07-01] MEDS ORDERED: MAG HYDROX/AL HYDROX/SIMETH 30 ML UNIT-DOSE CUP ONE (13:01)
[2023-07-01] MEDS: MAG HYDROX/AL HYDROX/SIMETH 30 ML UNIT-DOSE CUP PO ONE (13:05)
[2023-07-01] MEDS: SODIUM CHLORIDE 0.9% 500 ML INFUS.BAG IV ONE (13:15)
[2023-07-01] MEDS: ONDANSETRON 4 MG/2 ML VIAL IVPUSH ONE (13:15)
[2023-07-01] MEDS: FAMOTIDINE 20 MG TABLET PO ONE (13:20)
[2023-07-01] MEDS: ACETAMINOPHEN 1000 MG/100 ML BAG IVPB ONE (13:38)
[2023-07-01] MEDS: METOCLOPRAMIDE HCL INJECTION 10 MG/2 ML VIAL IVPUSH ONE (13:39)
[2023-07-01 14:03] LABS: HEMATOCRIT 43.8 % (32.4-45.2); HEMOGLOBIN 14.6 G/dL (10.7-15.3); MCH 29.3 pg (25.7-33.7); MCHC 33.3 g/dl (32.0-36.0); MEAN PLT VOLUME 8.7 fl (7.5-11.1); PLATELET COUNT 196.5 10^3/uL (134-434); RBC 4.98 10^6/uL (3.60-5.2); WHITE BLOOD COUNT 7.3 10^3/uL (4.0-10.8)
[2023-07-01 14:05] LABS: ALBUMIN 4.7 g/dl (3.4-5.0); BILIRUBIN,TOTAL 1.2 mg/dl (0.2-1); CALCIUM 9.9 mg/dl (8.5-10.1); CREATININE 0.9 mg/dl (0.6-1.3); POTASSIUM 3.9 mmol/L (3.5-5.1); TOT PROT 7.7 g/dl (6.4-8.2)
[2023-07-01 14:35] LABS: PLATELET ESTIMATE ADEQUATE
== END 2023-07-01 14:45 | disposition home or self-care (01) ==
LOC: FER 12:30 → SUPCPDRO 12:30 → FER 14:45
PROC: 3E033NZ Introduction of Analgesics, Hypnotics, Sedatives into Peripheral Vein, Percutaneous Approach (ICD-10-PCS; principal; 2023-07-01)
PROC: 3E033GC Introduction of Other Therapeutic Substance into Peripheral Vein, Percutaneous Approach (ICD-10-PCS; 2023-07-01)
DX: R11.2 Nausea with vomiting, unspecified (principal); R19.7 Diarrhea, unspecified; K52.9 Noninfective gastroenteritis and colitis, unspecified
CPT/HCPCS: 36415; 80053; 83690; 85027; 99284-25; J0131

== ENCOUNTER → 2023-07-10 | Day surgery (SDC) | payer OTHER | END | disposition home or self-care (01) | LOC: JMAMMO-SUR 11:43 | PROVIDERS: ATTEND Family Medicine | PROC: 0H9T3ZX Drainage of Right Breast, Percutaneous Approach, Diagnostic (ICD-10-PCS; principal; 2023-07-10) | DX: C50.911 Malignant neoplasm of unspecified site of right female breast (principal) | CPT/HCPCS: 19083; 77065-TC; 87899; 88305-TC; 88342-TC; A4648 ==

== ENCOUNTER 2024-11-14 00:11 | Emergency (ER) | payer OTHER ==
[2024-11-14 00:33] VITALS: BP 163/80; PULSE 56; RESP 18; TEMP 97.5; BMI 31.3
[2024-11-14 04:01] LABS: HCV DIAGNOSTIC IN-HOUSE W/RFLX NON-REACTIVE (NONREACTIVE); HIV INTERPRETATION NEGATIVE (NEGATIVE)
== END 2024-11-14 02:10 | disposition home or self-care (01) ==
LOC: FER 00:11
DX: I10 Essential (primary) hypertension (principal)
CPT/HCPCS: 36415; 71046-TC-FY; 86803; 87389; 93005; 99285-25

== ENCOUNTER 2024-12-27 21:51 | Emergency (ER) | payer OTHER ==
[2024-12-27 21:57] VITALS: BP 159/71; PULSE 72; RESP 18; TEMP 99; BMI 31.5
[2024-12-27] MEDS ORDERED: IBUPROFEN 600 MG TABLET (FP) PO ONE (22:14)
[2024-12-27] MEDS ORDERED: LIDOCAINE 5% TOPICAL PATCH ONE (22:15)
[2024-12-27] MEDS ORDERED: METHOCARBAMOL 500 MG TABLET ONE (22:15)
[2024-12-27] MEDS: IBUPROFEN 600 MG TABLET (FP) PO ONE (22:18)
[2024-12-27] MEDS: METHOCARBAMOL 500 MG TABLET PO ONE (22:18)
[2024-12-27] MEDS: LIDOCAINE PATCH REMOVAL MC SCH (22:19)
[2024-12-27] MEDS: LIDOCAINE 5% TOPICAL PATCH TP ONE (22:19)
== END 2024-12-27 23:23 | disposition home or self-care (01) ==
LOC: FER 21:51
DX: M62.830 Muscle spasm of back (principal); W01.0XXA Fall on same level from slipping, tripping and stumbling without subsequent striking against object, initial encounter; Y92.512 Supermarket, store or market as the place of occurrence of the external cause
CPT/HCPCS: 72070-TC-FY; 72100-TC-FY; 99283-25